=== PATIENT | male | born 1950 | race African-American/Black ===

== ENCOUNTER 2022-10-12 14:50 | Emergency (ER) | payer OTHER ==
[2022-10-12 15:27] VITALS: TEMP 98.6; BMI 34.7
[2022-10-12] MEDS ORDERED: SODIUM CHLORIDE 0.9% 500 ML INFUS.BAG IV ONE ×2 (17:33→17:56)
[2022-10-12] MEDS ORDERED: FOLIC ACID 1 MG TABLET (FP) PO ONE (17:56)
[2022-10-12] MEDS ORDERED: THIAMINE HCL 100 MG TABLET (FP) PO ONE (17:56)
[2022-10-12 18:09] LABS: EOS % 1.8 % (0-4.5); HEMATOCRIT 46.5 % (35.4-49); HEMOGLOBIN 15.2 GM/dL (11.7-16.9); LYMPH % 22.7 % (8-40); MCH 29.3 pg (25.7-33.7); MCHC 32.7 g/dl (32.0-35.9); MEAN CELL VOLUME 89.6 fl (80-96); MEAN PLT VOLUME 10.1 fl (7.5-11.1); MONO % 10.1 % (3.8-10.2); NEUT % 64.4 % (42.8-82.8); PLATELET COUNT 249 10^3/uL (134-434); WHITE BLOOD COUNT 7.3 K/mm3 (4.0-10.0)
[2022-10-12] MEDS ORDERED: THIAMINE HCL 100 MG TABLET (FP) ONE (18:19)
[2022-10-12] MEDS ORDERED: FOLIC ACID 1 MG TABLET (FP) ONE ×2 (18:19)
[2022-10-12 18:29] LABS: BLOOD UREA NITROGEN 15.1 mg/dL (7-18); CALCIUM 9.4 mg/dL (8.5-10.1); MAGNESIUM 2.3 mg/dL (1.8-2.4)
[2022-10-12 18:32] LABS: CREATININE 1.2 mg/dL (0.55-1.3)
[2022-10-12 18:34] LABS: BILIRUBIN,TOTAL 0.8 mg/dL (0.2-1); TOT PROT 7.5 g/dl (6.4-8.2)
[2022-10-12 18:54] VITALS: BP 129/83; PULSE 80; RESP 16
[2022-10-12 19:09] LABS: EPI CELLS 2 /uL (0-25.1); HYALINE CASTS 1 /uL (0-3.1); URINE APPEARANCE CLOUDY; URINE BACTERIA >9,000 /uL (0-1359); URINE BILIRUBIN NEGATIVE (NEGATIVE); URINE COLOR YELLOW; URINE GLUCOSE (UA) NEGATIVE (NEGATIVE); URINE KETONE TRACE (NEGATIVE); URINE LEUK ESTERASE 3+ (NEGATIVE); URINE NITRITE POSITIVE (NEGATIVE); URINE PROTEIN 1+ (NEGATIVE); URINE RBC 33 /uL (0-23.9); URINE WBC 2237 /uL (0-25.8)
[2022-10-12] MEDS ORDERED: CEFTRIAXONE 1 GM in DEXTROSE 5%-WATER - 100 ML IVPB ONE (19:23)
[2022-10-12] MEDS ORDERED: CEFTRIAXONE 1 GM/50 ML BAG ONE (19:58)
== END 2022-10-12 20:29 | disposition home or self-care (01) ==
LOC: JER 14:50
PROC: 3E033GC Introduction of Other Therapeutic Substance into Peripheral Vein, Percutaneous Approach (ICD-10-PCS; principal; 2022-10-12)
DX: N39.0 Urinary tract infection, site not specified (principal); R53.1 Weakness
CPT/HCPCS: 0241U-QW; 36415; 71046-TC-FY; 80053; 81003; 83735; 83880; 84443; 84484; 85025; 87086; 87186; 93005; 93010; 96365; 99285-25

== ENCOUNTER 2022-10-19 10:25 | Emergency (ER) | payer OTHER ==
[2022-10-19 10:47] VITALS: BP 136/100; PULSE 89; RESP 20; TEMP 98.7; BMI 36.6
[2022-10-19] MEDS ORDERED: MEROPENEM 1 GM in DEXTROSE 5%-WATER 100 ML IVPB ONE (11:49)
[2022-10-19 12:24] LABS: EPI CELLS 1 /uL (0-25.1); HYALINE CASTS 0 /uL (0-3.1); URINE APPEARANCE CLOUDY; URINE BACTERIA >9,000 /uL (0-1359); URINE BILIRUBIN NEGATIVE (NEGATIVE); URINE COLOR YELLOW; URINE GLUCOSE (UA) NEGATIVE (NEGATIVE); URINE KETONE NEGATIVE (NEGATIVE); URINE LEUK ESTERASE 3+ (NEGATIVE); URINE NITRITE NEGATIVE (NEGATIVE); URINE PROTEIN NEGATIVE (NEGATIVE); URINE RBC 19 /uL (0-23.9); URINE UROBILINOGEN 0.2 mg/dL (0.2-1.0); URINE WBC 1313 /uL (0-25.8)
== END 2022-10-19 12:00 | disposition left against medical advice (07) ==
LOC: JER 10:25
DX: N30.00 Acute cystitis without hematuria (principal)
CPT/HCPCS: 81003; 87086; 87186; 96374; 99284-25

== ENCOUNTER 2022-10-24 07:32 | Inpatient (IN) | payer OTHER ==
[2022-10-24 07:48] VITALS: BMI 31.6
[2022-10-24] MEDS ORDERED: MEROPENEM 500 MG in DEXTROSE 5%-WATER 100 ML IVPB ONE (08:53)
[2022-10-24] MEDS ORDERED: MEROPENEM 1 GM in DEXTROSE 5%-WATER 100 ML IVPB ONE (08:57)
[2022-10-24] MEDS ORDERED: MEROPENEM 1 GM VIAL (RESTRICTED TO ID) IVPB ONE (09:07)
[2022-10-24 09:40] LABS: BASO % 1.1 % (0-2.0); EOS % 2.4 % (0-4.5); HEMATOCRIT 42.2 % (35.4-49); HEMOGLOBIN 14.2 GM/dL (11.7-16.9); LYMPH % 26.1 % (8-40); MCHC 33.8 g/dl (32.0-35.9); MEAN CELL VOLUME 88.8 fl (80-96); MEAN PLT VOLUME 9.4 fl (7.5-11.1); MONO % 12.1 % (3.8-10.2); NEUT % 58.3 % (42.8-82.8); PLATELET COUNT 225 10^3/uL (134-434); RBC 4.74 M/mm3 (4.00-5.60); RDW 13.5 % (11.9-15.9); WHITE BLOOD COUNT 7.9 K/mm3 (4.0-10.0)
[2022-10-24 09:54] LABS: CALCIUM 9.1 mg/dL (8.5-10.1)
[2022-10-24 09:55] LABS: ALBUMIN 3.7 g/dl (3.4-5.0); BLOOD UREA NITROGEN 20.7 mg/dL (7-18)
[2022-10-24 09:58] LABS: CREATININE 1.3 mg/dL (0.55-1.3)
[2022-10-24 10:00] LABS: BILIRUBIN,TOTAL 0.5 mg/dL (0.2-1); TOT PROT 7.1 g/dl (6.4-8.2)
[2022-10-24 11:48] LABS: EPI CELLS 3 /uL (0-25.1); HYALINE CASTS 1 /uL (0-3.1); PH,URINE 5.5 (5.0-8.0); URINE APPEARANCE CLOUDY; URINE BACTERIA >9,000 /uL (0-1359); URINE BILIRUBIN NEGATIVE (NEGATIVE); URINE COLOR YELLOW; URINE GLUCOSE (UA) NEGATIVE (NEGATIVE); URINE KETONE TRACE (NEGATIVE); URINE LEUK ESTERASE 2+ (NEGATIVE); URINE NITRITE NEGATIVE (NEGATIVE); URINE PROTEIN TRACE (NEGATIVE); URINE RBC 22 /uL (0-23.9); URINE UROBILINOGEN 0.2 mg/dL (0.2-1.0); URINE WBC 1209 /uL (0-25.8)
[2022-10-24 12:22] LABS: URINE CRYSTALS CALCIUM OXALATE /hpf
[2022-10-24] MEDS: PIPERACILLIN/TAZOB 3.375 GM 3.375 GM in DEXTROSE 5%-WATER - 50 ML IVPB SCH (18:09)
[2022-10-24] MEDS ORDERED: ACETAMINOPHEN 325 MG TABLET (FP) PO PRN (18:50)
[2022-10-25] MEDS: DEXTROSE 5%-0.45% SALINE 1,000 ML IV SCH ×2 (00:30→16:38)
[2022-10-25] MEDS: PIPERACILLIN/TAZOB 3.375 GM 3.375 GM in DEXTROSE 5%-WATER - 50 ML IVPB SCH ×3 (01:43→17:40)
[2022-10-25] MEDS: HEPARIN NA (PORCINE) 5,000 UNITS/ML 1ML VIAL SQ SCH ×2 (09:59→22:43)
[2022-10-25] MEDS: amLODIPine BESYLATE 10 MG TABLET (FP) PO SCH (10:00)
[2022-10-25] MEDS: HYDROCHLOROTHIAZIDE 12.5 MG CAPSULE (FP) PO SCH (10:00)
[2022-10-25] MEDS: ASPIRIN 81 MG CHEWABLE TABLETS PO SCH (10:00)
[2022-10-25] MEDS: LISINOPRIL 20 MG TABLET PO SCH (10:00)
[2022-10-25] MEDS: metoPROLOL SUCCINATE 25 MG TAB.SR.24H (FP) PO SCH (10:00)
[2022-10-25] MEDS: ATORVASTATIN CA 10 MG TABLET (FP) PO SCH (22:42)
[2022-10-26] MEDS: PIPERACILLIN/TAZOB 3.375 GM 3.375 GM in DEXTROSE 5%-WATER - 50 ML IVPB SCH ×3 (02:23→17:35)
[2022-10-26] MEDS: DEXTROSE 5%-0.45% SALINE 1,000 ML IV SCH (02:24)
[2022-10-26] MEDS: amLODIPine BESYLATE 10 MG TABLET (FP) PO SCH (09:49)
[2022-10-26] MEDS: HYDROCHLOROTHIAZIDE 12.5 MG CAPSULE (FP) PO SCH (09:49)
[2022-10-26] MEDS: metoPROLOL SUCCINATE 25 MG TAB.SR.24H (FP) PO SCH (09:49)
[2022-10-26] MEDS: LISINOPRIL 20 MG TABLET PO SCH (09:50)
[2022-10-26] MEDS: ASPIRIN 81 MG CHEWABLE TABLETS PO SCH (09:50)
[2022-10-26] MEDS: HEPARIN NA (PORCINE) 5,000 UNITS/ML 1ML VIAL SQ SCH ×2 (09:50→22:59)
[2022-10-26 10:39] LABS: HEMATOCRIT 44.2 % (35.4-49); HEMOGLOBIN 14.8 GM/dL (11.7-16.9); LYMPH % 22.2 % (8-40); MCH 29.8 pg (25.7-33.7); MCHC 33.5 g/dl (32.0-35.9); MEAN CELL VOLUME 88.9 fl (80-96); MEAN PLT VOLUME 9.4 fl (7.5-11.1); MONO % 11.1 % (3.8-10.2); NEUT % 62.7 % (42.8-82.8); PLATELET COUNT 242 10^3/uL (134-434); RBC 4.97 M/mm3 (4.00-5.60); RDW 13.5 % (11.9-15.9); WHITE BLOOD COUNT 7.5 K/mm3 (4.0-10.0)
[2022-10-26 11:11] LABS: ALBUMIN 3.7 g/dl (3.4-5.0); BLOOD UREA NITROGEN 13.3 mg/dL (7-18)
[2022-10-26 11:14] LABS: CREATININE 1.1 mg/dL (0.55-1.3)
[2022-10-26 11:15] LABS: BILIRUBIN,TOTAL 0.9 mg/dL (0.2-1); TOT PROT 7.3 g/dl (6.4-8.2)
[2022-10-26] MEDS: ATORVASTATIN CA 10 MG TABLET (FP) PO SCH (22:59)
[2022-10-27] MEDS: DEXTROSE 5%-0.45% SALINE 1,000 ML IV SCH ×2 (02:23→22:03)
[2022-10-27] MEDS: PIPERACILLIN/TAZOB 3.375 GM 3.375 GM in DEXTROSE 5%-WATER - 50 ML IVPB SCH ×3 (02:23→18:28)
[2022-10-27] MEDS: amLODIPine BESYLATE 10 MG TABLET (FP) PO SCH (10:02)
[2022-10-27] MEDS: HYDROCHLOROTHIAZIDE 12.5 MG CAPSULE (FP) PO SCH (10:02)
[2022-10-27] MEDS: metoPROLOL SUCCINATE 25 MG TAB.SR.24H (FP) PO SCH (10:02)
[2022-10-27] MEDS: LISINOPRIL 20 MG TABLET PO SCH (10:02)
[2022-10-27] MEDS: ASPIRIN 81 MG CHEWABLE TABLETS PO SCH (10:03)
[2022-10-27] MEDS: HEPARIN NA (PORCINE) 5,000 UNITS/ML 1ML VIAL SQ SCH ×2 (10:03→21:10)
[2022-10-27] MEDS: ATORVASTATIN CA 10 MG TABLET (FP) PO SCH (21:10)
[2022-10-28] MEDS: PIPERACILLIN/TAZOB 3.375 GM 3.375 GM in DEXTROSE 5%-WATER - 50 ML IVPB SCH ×2 (01:26→09:47)
[2022-10-28] MEDS: DEXTROSE 5%-0.45% SALINE 1,000 ML IV SCH (01:26)
[2022-10-28 04:48] VITALS: RESP 18
[2022-10-28 08:58] VITALS: BP 152/82; PULSE 77; TEMP 98.4
[2022-10-28] MEDS: amLODIPine BESYLATE 10 MG TABLET (FP) PO SCH (09:45)
[2022-10-28] MEDS: LISINOPRIL 20 MG TABLET PO SCH (09:45)
[2022-10-28] MEDS: ASPIRIN 81 MG CHEWABLE TABLETS PO SCH (09:45)
[2022-10-28] MEDS: metoPROLOL SUCCINATE 25 MG TAB.SR.24H (FP) PO SCH (09:45)
[2022-10-28] MEDS: HYDROCHLOROTHIAZIDE 12.5 MG CAPSULE (FP) PO SCH (09:45)
[2022-10-28] MEDS: HEPARIN NA (PORCINE) 5,000 UNITS/ML 1ML VIAL SQ SCH (09:47)
== END 2022-10-28 14:15 | disposition left against medical advice (07) | DRG 690 ==
LOC: JER 07:32 → JERBED 09:58 → J6S 15:14
PROVIDERS: ADMIT Internal Medicine; ATTEND Internal Medicine
DX: N39.0 Urinary tract infection, site not specified (principal); I10 Essential (primary) hypertension; N40.0 Benign prostatic hyperplasia without lower urinary tract symptoms; E66.9 Obesity, unspecified; Z68.31 Body mass index [BMI] 31.0-31.9, adult
CPT/HCPCS: 0241U-QW; 36415; 71046-TC-FY; 76775-TC; 80053; 81003; 85025; 87086; 87186; 93005; 93010; 99285-25; J1644

== ENCOUNTER 2025-04-14 11:45 | Inpatient (IN) | payer OTHER ==
[2025-04-14 12:50] LABS: ABSOLUTE IMMATURE GRANULOCYTES 0.01 x10^3/uL (0.0-0.031); BASOPHILS # 0.06 x10^3/uL (0.01-0.08); EOSINOPHILS # 0.19 x10^3/uL (0.04-0.54); HEMATOCRIT 39.5 % (40.1-51.0); HEMOGLOBIN 13.5 g/dL (13.7-17.5); MCHC 34.2 g/dl (32.3-36.5); MEAN PLT VOLUME 11.6 fl (9.4-12.4); MONOCYTE # 0.85 x10^3/uL (0.30-0.82); MONOCYTE % 13.6 % (5.3-12.2); PLATELET COUNT 199 x10^3/uL (163-337); RDW 12.9 % (12.2-16.6)
[2025-04-14] MEDS ORDERED: MEROPENEM 1 GM VIAL (RESTRICTED TO ID) IVPB ONE ×2 (12:57→17:45)
[2025-04-14 13:12] LABS: CALCIUM 9.2 mg/dL (8.5-10.1)
[2025-04-14 13:13] LABS: ALBUMIN 3.7 g/dl (3.4-5.0)
[2025-04-14 13:16] LABS: CREATININE 1.1 mg/dL (0.55-1.3)
[2025-04-14 13:17] LABS: BILIRUBIN,TOTAL 0.6 mg/dL (0.2-1); TOT PROT 6.9 g/dl (6.4-8.2)
[2025-04-14] MEDS: MEROPENEM 1 GM in DEXTROSE 5%-WATER 100 ML IVPB ONE (13:23)
[2025-04-14 13:48] LABS: EPI CELLS 1 /uL (0-25.1); HYALINE CASTS 1 /uL (0-3.1); PH,URINE 6.5 (5.0-8.0); URINE APPEARANCE CLEAR; URINE BACTERIA >9,000 /uL (0-1359); URINE BILIRUBIN NEGATIVE (NEGATIVE); URINE COLOR YELLOW; URINE GLUCOSE (UA) NEGATIVE (NEGATIVE); URINE KETONE NEGATIVE (NEGATIVE); URINE LEUK ESTERASE 3+ (NEGATIVE); URINE NITRITE POSITIVE (NEGATIVE); URINE PROTEIN NEGATIVE (NEGATIVE); URINE RBC 20 /uL (0-23.9); URINE WBC 640 /uL (0-25.8)
[2025-04-14] MEDS: DEXTROSE 5%-0.45% SALINE 1,000 ML IV SCH (15:26)
[2025-04-14] MEDS: MEROPENEM 1 GM in DEXTROSE 5%-WATER 100 ML IVPB SCH ×2 (18:00→23:55)
[2025-04-14 23:45] VITALS: BMI 36.4
[2025-04-14] MEDS: ATORVASTATIN CA 10 MG TABLET (FP) PO SCH (23:55)
[2025-04-14] MEDS: HEPARIN NA (PORCINE) 5,000 UNITS/ML 1ML VIAL SQ SCH (23:55)
[2025-04-15] MEDS: PIPERACILLIN/TAZOB 4.5 GM 4.5 GM/100 ML BAG IVPB SCH (01:22)
[2025-04-15 07:17] LABS: ABSOLUTE IMMATURE GRANULOCYTES 0.02 x10^3/uL (0.0-0.031); BASOPHILS # 0.07 x10^3/uL (0.01-0.08); EOSINOPHIL % 3.4 % (0.8-7.0); EOSINOPHILS # 0.23 x10^3/uL (0.04-0.54); HEMATOCRIT 38.7 % (40.1-51.0); HEMOGLOBIN 13.4 g/dL (13.7-17.5); MCHC 34.6 g/dl (32.3-36.5); MEAN CELL VOLUME 87.2 fl (79.0-92.2); MEAN PLT VOLUME 11.4 fl (9.4-12.4); MONOCYTE # 0.78 x10^3/uL (0.30-0.82); MONOCYTE % 11.7 % (5.3-12.2); PLATELET COUNT 196 x10^3/uL (163-337); RDW 12.8 % (12.2-16.6)
[2025-04-15 07:31] LABS: POTASSIUM 3.5 mmol/L (3.5-5.1)
[2025-04-15 07:34] LABS: ALBUMIN 3.4 g/dl (3.4-5.0); BLOOD UREA NITROGEN 11.8 mg/dL (7-18)
[2025-04-15 07:39] LABS: BILIRUBIN,TOTAL 0.8 mg/dL (0.2-1); TOT PROT 6.5 g/dl (6.4-8.2)
[2025-04-15] MEDS: LISINOPRIL 20 MG TABLET PO SCH (10:20)
[2025-04-15] MEDS: amLODIPine BESYLATE 10 MG TABLET (FP) PO SCH (10:20)
[2025-04-15] MEDS: metoPROLOL SUCCINATE 25 MG TAB.SR.24H (FP) PO SCH (10:20)
[2025-04-15] MEDS: TAMSULOSIN HCL 0.4 MG CAP PO SCH (10:20)
[2025-04-15] MEDS: ASPIRIN 81 MG CHEWABLE TABLETS PO SCH (10:20)
[2025-04-16 07:45] LABS: ABSOLUTE IMMATURE GRANULOCYTES 0.02 x10^3/uL (0.0-0.031); BASOPHILS # 0.09 x10^3/uL (0.01-0.08); EOSINOPHIL % 3.7 % (0.8-7.0); EOSINOPHILS # 0.23 x10^3/uL (0.04-0.54); HEMATOCRIT 42.4 % (40.1-51.0); HEMOGLOBIN 14.4 g/dL (13.7-17.5); MEAN CELL VOLUME 87.6 fl (79.0-92.2); MONOCYTE # 0.73 x10^3/uL (0.30-0.82); MONOCYTE % 11.8 % (5.3-12.2); PLATELET COUNT 232 x10^3/uL (163-337); RDW 12.8 % (12.2-16.6)
[2025-04-16 08:07] LABS: ALBUMIN 3.7 g/dl (3.4-5.0); BLOOD UREA NITROGEN 12.6 mg/dL (7-18)
[2025-04-16 08:09] LABS: BILIRUBIN,TOTAL 0.7 mg/dL (0.2-1); CALCIUM 9.3 mg/dL (8.5-10.1); TOT PROT 7.1 g/dl (6.4-8.2)
[2025-04-16] MEDS: MEROPENEM 1 GM in DEXTROSE 5%-WATER 100 ML IVPB SCH (18:07)
[2025-04-17 08:24] LABS: ABSOLUTE IMMATURE GRANULOCYTES 0.01 x10^3/uL (0.0-0.031); BASOPHILS # 0.08 x10^3/uL (0.01-0.08); EOSINOPHIL % 3.9 % (0.8-7.0); EOSINOPHILS # 0.25 x10^3/uL (0.04-0.54); HEMATOCRIT 44.5 % (40.1-51.0); HEMOGLOBIN 14.8 g/dL (13.7-17.5); MCHC 33.3 g/dl (32.3-36.5); MEAN CELL VOLUME 87.4 fl (79.0-92.2); MEAN PLT VOLUME 11.8 fl (9.4-12.4); MONOCYTE # 0.65 x10^3/uL (0.30-0.82); PLATELET COUNT 247 x10^3/uL (163-337)
[2025-04-17 09:15] LABS: POTASSIUM 4.1 mmol/L (3.5-5.1)
[2025-04-17 09:17] LABS: CALCIUM 9.5 mg/dL (8.5-10.1)
[2025-04-17 09:19] LABS: ALBUMIN 3.7 g/dl (3.4-5.0); BLOOD UREA NITROGEN 8.3 mg/dL (7-18)
[2025-04-17 09:24] LABS: BILIRUBIN,TOTAL 0.8 mg/dL (0.2-1); TOT PROT 7.3 g/dl (6.4-8.2)
[2025-04-17] MEDS: BISACODYL 5 MG TABLET.DR (FP) PO ONE (13:58)
[2025-04-17] MEDS: POLYETHYLENE GLYCOL 3350 255 GM BTL PO ONE (16:36)
[2025-04-20 08:17] LABS: HEMATOCRIT 42.3 % (40.1-51.0); HEMOGLOBIN 14.2 g/dL (13.7-17.5); MCHC 33.6 g/dl (32.3-36.5); MEAN CELL VOLUME 88.1 fl (79.0-92.2); MEAN PLT VOLUME 11.9 fl (9.4-12.4); PLATELET COUNT 217 x10^3/uL (163-337); RDW 12.7 % (12.2-16.6)
[2025-04-20 08:37] LABS: POTASSIUM 3.8 mmol/L (3.5-5.1)
[2025-04-20 08:39] LABS: CALCIUM 9.3 mg/dL (8.5-10.1)
[2025-04-20 08:40] LABS: ALBUMIN 3.5 g/dl (3.4-5.0); BLOOD UREA NITROGEN 11.5 mg/dL (7-18)
[2025-04-20 08:43] LABS: CREATININE 0.9 mg/dL (0.55-1.3)
[2025-04-20 08:44] LABS: BILIRUBIN,TOTAL 1.1 mg/dL (0.2-1)
[2025-04-20 08:45] LABS: TOT PROT 6.6 g/dl (6.4-8.2)
[2025-04-21 08:09] LABS: HEMATOCRIT 41.9 % (40.1-51.0); HEMOGLOBIN 14.1 g/dL (13.7-17.5); MCHC 33.7 g/dl (32.3-36.5); MEAN CELL VOLUME 88.4 fl (79.0-92.2); PLATELET COUNT 235 x10^3/uL (163-337); RDW 12.7 % (12.2-16.6)
[2025-04-21 08:24] LABS: POTASSIUM 4.2 mmol/L (3.5-5.1)
[2025-04-21 08:30] LABS: ALBUMIN 3.5 g/dl (3.4-5.0); BLOOD UREA NITROGEN 15.9 mg/dL (7-18); CALCIUM 9.6 mg/dL (8.5-10.1)
[2025-04-21 08:35] LABS: BILIRUBIN,TOTAL 0.8 mg/dL (0.2-1); TOT PROT 6.8 g/dl (6.4-8.2)
[2025-04-21] MEDS: PANTOPRAZOLE 40 MG TABLET PO SCH (16:04)
[2025-04-21] MEDS: BISMUTH SUBSALICYLATE 524 MG/30 ML PO PRN (18:09)
[2025-04-22 07:42] LABS: ABSOLUTE IMMATURE GRANULOCYTES 0.03 x10^3/uL (0.0-0.031); BASOPHILS # 0.08 x10^3/uL (0.01-0.08); EOSINOPHIL % 3.1 % (0.8-7.0); EOSINOPHILS # 0.22 x10^3/uL (0.04-0.54); HEMATOCRIT 40.6 % (40.1-51.0); HEMOGLOBIN 13.6 g/dL (13.7-17.5); MCHC 33.5 g/dl (32.3-36.5); MEAN CELL VOLUME 88.1 fl (79.0-92.2); MONOCYTE # 0.83 x10^3/uL (0.30-0.82); MONOCYTE % 11.5 % (5.3-12.2); PLATELET COUNT 236 x10^3/uL (163-337); RDW 12.7 % (12.2-16.6)
[2025-04-22 07:53] LABS: POTASSIUM 4.3 mmol/L (3.5-5.1)
[2025-04-22 07:54] LABS: CALCIUM 9.5 mg/dL (8.5-10.1)
[2025-04-22 07:55] LABS: ALBUMIN 3.6 g/dl (3.4-5.0); BLOOD UREA NITROGEN 15.9 mg/dL (7-18)
[2025-04-22 08:00] LABS: BILIRUBIN,TOTAL 0.7 mg/dL (0.2-1); TOT PROT 6.8 g/dl (6.4-8.2)
[2025-04-22] MEDS: POLYETHYLENE GLYCOL 3350 255 GM BTL PO ONE (17:46)
[2025-04-22] MEDS: BISACODYL 5 MG TABLET.DR (FP) PO ONE (18:13)
[2025-04-22] MEDS: NEOMYCIN SO4 500 MG TABLET PO SCH (19:06)
[2025-04-22] MEDS: metroNIDAZOLE 250 MG TABLET PO SCH (19:06)
[2025-04-23] MEDS ORDERED: cefOXitin SODIUM 2 GM VIAL (RESTRICTED TO ID) IVPB ONE (07:04)
[2025-04-23] MEDS ORDERED: INDOCYANINE GREEN 25 MG/10 ML VIAL IVPUSH ONE (07:04)
[2025-04-23] MEDS ORDERED: HEPARIN NA (PORCINE) 5,000 UNITS/ML 1ML VIAL ONE (07:04)
[2025-04-23] MEDS ORDERED: BUPIVACAINE HCL/PF 0.25% (2.5MG/ML) 10 ML VIAL ONE (07:04)
[2025-04-23] MEDS ORDERED: SUCCINYLCHOLINE CHLORIDE 200 MG/10 ML SYRINGE ONE (07:33)
[2025-04-23] MEDS ORDERED: ROCURONIUM BROMIDE 50 MG/5 ML SYRINGE ONE ×2 (07:33→11:19)
[2025-04-23] MEDS ORDERED: METOCLOPRAMIDE HCL INJECTION 10 MG/2 ML VIAL ONE (07:34)
[2025-04-23] MEDS ORDERED: GLYCOPYRROLATE 0.2 MG/1 ML VIAL ONE (07:34)
[2025-04-23] MEDS ORDERED: KETOROLAC TROMETHAMINE 30 MG/1 ML VIAL ONE (07:34)
[2025-04-23] MEDS ORDERED: ONDANSETRON 4 MG/2 ML VIAL ONE (07:34)
[2025-04-23] MEDS ORDERED: DEXAMETHASONE SOD PHOSPHATE 4 MG/1 ML VIAL ONE (07:34)
[2025-04-23] MEDS ORDERED: LIDOCAINE HCL/PF 2% SDV 5ML VIAL ONE (07:34)
[2025-04-23] MEDS ORDERED: SEVOFLURANE 250 ML BTL ONE (07:35)
[2025-04-23] MEDS ORDERED: MIDAZOLAM HCL 2 MG/2 ML SINGLE DOSE VIAL ONE (07:39)
[2025-04-23] MEDS ORDERED: PROPOFOL 20 ML ONE ×2 (07:40→14:49)
[2025-04-23] MEDS ORDERED: PROPOFOL 60 ML ONE (08:13)
[2025-04-23] MEDS ORDERED: HYDROmorphone HCl 2 MG/ML VIAL ONE (08:20)
[2025-04-23 08:35] LABS: INR 1.23 (0.83-1.09); PROTHROMBIN TIME (PATIENT) 13.4 SEC (9.7-13.0)
[2025-04-23 08:37] LABS: ACTIVATED PTT 42.3 SECONDS (25.2-36.5)
[2025-04-23] MEDS ORDERED: ESMOLOL HCL 100,000 MCG/10 ML VIAL ONE (09:35)
[2025-04-23] MEDS: cefOXitin SODIUM 1 GM VIAL (RESTRICTED TO ID) IVPB ONE ×2 (09:46)
[2025-04-23] MEDS ORDERED: ACETAMINOPHEN INJECTION 100 ML ONE (09:59)
[2025-04-23] MEDS: BUPIVACAINE HCL/PF 0.25% (2.5MG/ML) 10 ML VIAL IJ ONE ×2 (09:59)
[2025-04-23] MEDS ORDERED: PROPOFOL 40 ML ONE (11:27)
[2025-04-23] MEDS ORDERED: SUGAMMADEX SODIUM 200 MG/2 ML VIAL ONE (14:27)
[2025-04-23] MEDS ORDERED: oxyCODONE HCL 5 MG TABLET PO PRN (15:56)
[2025-04-23 17:13] LABS: POTASSIUM 4.6 mmol/L (3.5-5.1)
[2025-04-23 17:15] LABS: BLOOD UREA NITROGEN 14.6 mg/dL (7-18); CALCIUM 9.1 mg/dL (8.5-10.1)
[2025-04-23 17:16] LABS: MAGNESIUM 2.1 mg/dL (1.8-2.4)
[2025-04-23] MEDS: ACETAMINOPHEN 1000 MG/100 ML BAG IVPB SCH (17:36)
[2025-04-23] MEDS: LACTATED RINGERS SOLUTION 1,000 ML IV SCH ×2 (17:39→23:02)
[2025-04-23] MEDS: MEROPENEM 1 GM in DEXTROSE 5%-WATER 100 ML IVPB SCH (18:09)
[2025-04-23] MEDS: ATORVASTATIN CA 10 MG TABLET (FP) PO SCH (22:05)
[2025-04-23] MEDS: HEPARIN NA (PORCINE) 5,000 UNITS/ML 1ML VIAL SQ SCH (22:05)
[2025-04-24 08:00] LABS: ABSOLUTE IMMATURE GRANULOCYTES 0.08 x10^3/uL (0.0-0.031); BASOPHILS # 0.02 x10^3/uL (0.01-0.08); HEMATOCRIT 35.3 % (40.1-51.0); HEMOGLOBIN 11.8 g/dL (13.7-17.5); MCHC 33.4 g/dl (32.3-36.5); MEAN CELL VOLUME 90.1 fl (79.0-92.2); MEAN PLT VOLUME 12.5 fl (9.4-12.4); MONOCYTE # 2.01 x10^3/uL (0.30-0.82); MONOCYTE % 11.3 % (5.3-12.2); PLATELET COUNT 217 x10^3/uL (163-337); RDW 12.7 % (12.2-16.6)
[2025-04-24 08:28] LABS: POTASSIUM 4.5 mmol/L (3.5-5.1)
[2025-04-24 08:46] LABS: BLOOD UREA NITROGEN 14.2 mg/dL (7-18)
[2025-04-24 08:48] LABS: CREATININE 0.8 mg/dL (0.55-1.3); MAGNESIUM 2.1 mg/dL (1.8-2.4)
[2025-04-24 08:49] LABS: PHOSPHOROUS 3.2 mg/dL (2.5-4.9)
[2025-04-24] MEDS: TAMSULOSIN HCL 0.4 MG CAP PO SCH (08:49)
[2025-04-24] MEDS: oxyCODONE HCL 5 MG TABLET PO PRN (08:49)
[2025-04-24 08:51] LABS: CALCIUM 9.4 mg/dL (8.5-10.1)
[2025-04-24] MEDS: metoPROLOL SUCCINATE 25 MG TAB.SR.24H (FP) PO SCH (10:14)
[2025-04-24] MEDS: LISINOPRIL 20 MG TABLET PO SCH (10:14)
[2025-04-24] MEDS: PANTOPRAZOLE 40 MG TABLET PO SCH (10:14)
[2025-04-24] MEDS: amLODIPine BESYLATE 10 MG TABLET (FP) PO SCH (10:14)
[2025-04-24] MEDS: ACETAMINOPHEN 500 MG TABLET (FP) PO PRN (10:20)
[2025-04-24] MEDS: ONDANSETRON 4 MG/2 ML VIAL IVPUSH ONE (20:05)
[2025-04-25 08:23] LABS: ABSOLUTE IMMATURE GRANULOCYTES 0.07 x10^3/uL (0.0-0.031); BASOPHILS # 0.04 x10^3/uL (0.01-0.08); EOSINOPHIL % 0.1 % (0.8-7.0); EOSINOPHILS # 0.01 x10^3/uL (0.04-0.54); HEMATOCRIT 35.8 % (40.1-51.0); HEMOGLOBIN 11.8 g/dL (13.7-17.5); MEAN CELL VOLUME 90.9 fl (79.0-92.2); MEAN PLT VOLUME 12.3 fl (9.4-12.4); MONOCYTE # 2.36 x10^3/uL (0.30-0.82); MONOCYTE % 13.7 % (5.3-12.2); PLATELET COUNT 227 x10^3/uL (163-337)
[2025-04-25 08:51] LABS: POTASSIUM 4.3 mmol/L (3.5-5.1)
[2025-04-25 08:57] LABS: CALCIUM 9.2 mg/dL (8.5-10.1)
[2025-04-25 08:58] LABS: ALBUMIN 3.4 g/dl (3.4-5.0); BLOOD UREA NITROGEN 13.6 mg/dL (7-18); MAGNESIUM 2.1 mg/dL (1.8-2.4)
[2025-04-25 09:01] LABS: BILIRUBIN,TOTAL 1.1 mg/dL (0.2-1); CREATININE 0.9 mg/dL (0.55-1.3); PHOSPHOROUS 2.9 mg/dL (2.5-4.9); TOT PROT 6.6 g/dl (6.4-8.2)
[2025-04-25] MEDS: ACETAMINOPHEN 500 MG TABLET (FP) PO SCH (11:18)
[2025-04-25] MEDS: ONDANSETRON 4 MG/2 ML VIAL IVPUSH PRN (11:18)
[2025-04-25] MEDS: SODIUM CHLORIDE 1,000 ML IV STA (16:51)
[2025-04-25] MEDS: ACETAMINOPHEN 1000 MG/100 ML BAG IVPB SCH (17:29)
[2025-04-25] MEDS: LACTATED RINGERS SOLUTION 1,000 ML IV SCH (18:38)
[2025-04-25] MEDS: BISMUTH SUBSALICYLATE 524 MG/30 ML PO PRN (21:20)
[2025-04-26] MEDS ORDERED: PANTOPRAZOLE SODIUM 40 MG in SODIUM CHLORIDE 100 ML IVPB ONE (07:30)
[2025-04-26 07:56] LABS: ABSOLUTE IMMATURE GRANULOCYTES 0.14 x10^3/uL (0.0-0.031); BASOPHILS # 0.05 x10^3/uL (0.01-0.08); EOSINOPHIL % 0.1 % (0.8-7.0); EOSINOPHILS # 0.01 x10^3/uL (0.04-0.54); HEMATOCRIT 34.9 % (40.1-51.0); HEMOGLOBIN 11.7 g/dL (13.7-17.5); MCHC 33.5 g/dl (32.3-36.5); MEAN CELL VOLUME 89.7 fl (79.0-92.2); MEAN PLT VOLUME 12.4 fl (9.4-12.4); MONOCYTE # 2.03 x10^3/uL (0.30-0.82); MONOCYTE % 10.8 % (5.3-12.2); PLATELET COUNT 273 x10^3/uL (163-337)
[2025-04-26] MEDS: PANTOPRAZOLE SODIUM 40 MG in SODIUM CHLORIDE 100 ML IVPB ONE (08:14)
[2025-04-26 08:32] LABS: POTASSIUM 4.2 mmol/L (3.5-5.1)
[2025-04-26 08:35] LABS: BLOOD UREA NITROGEN 16.1 mg/dL (7-18); CALCIUM 9.5 mg/dL (8.5-10.1); MAGNESIUM 2.2 mg/dL (1.8-2.4)
[2025-04-26 08:38] LABS: CREATININE 0.9 mg/dL (0.55-1.3); PHOSPHOROUS 3.1 mg/dL (2.5-4.9)
[2025-04-26 08:39] LABS: BILIRUBIN,TOTAL 0.9 mg/dL (0.2-1)
[2025-04-26 08:40] LABS: TOT PROT 6.3 g/dl (6.4-8.2)
[2025-04-26] MEDS: HYDROCORTISONE 1% TOPICAL OINT 30 GM TUBE TP SCH (13:27)
[2025-04-27 08:06] LABS: ABSOLUTE IMMATURE GRANULOCYTES 0.06 x10^3/uL (0.0-0.031); BASOPHILS # 0.07 x10^3/uL (0.01-0.08); EOSINOPHIL % 1.2 % (0.8-7.0); EOSINOPHILS # 0.14 x10^3/uL (0.04-0.54); HEMOGLOBIN 10.2 g/dL (13.7-17.5); MCHC 32.9 g/dl (32.3-36.5); MEAN CELL VOLUME 89.9 fl (79.0-92.2); MONOCYTE # 1.23 x10^3/uL (0.30-0.82); MONOCYTE % 10.6 % (5.3-12.2); PLATELET COUNT 236 x10^3/uL (163-337); RDW 13.1 % (12.2-16.6)
[2025-04-27 08:08] LABS: CALCIUM 9.1 mg/dL (8.5-10.1)
[2025-04-27 08:09] LABS: ALBUMIN 2.6 g/dl (3.4-5.0); BLOOD UREA NITROGEN 16.9 mg/dL (7-18); MAGNESIUM 2.1 mg/dL (1.8-2.4)
[2025-04-27 08:12] LABS: CREATININE 0.8 mg/dL (0.55-1.3); PHOSPHOROUS 2.5 mg/dL (2.5-4.9)
[2025-04-27 08:13] LABS: BILIRUBIN,TOTAL 0.7 mg/dL (0.2-1); TOT PROT 5.6 g/dl (6.4-8.2)
[2025-04-27] MEDS: oxyCODONE HCL 5 MG TABLET PO PRN (18:09)
[2025-04-28 08:10] LABS: ABSOLUTE IMMATURE GRANULOCYTES 0.04 x10^3/uL (0.0-0.031); BASOPHILS # 0.04 x10^3/uL (0.01-0.08); EOSINOPHIL % 1.1 % (0.8-7.0); EOSINOPHILS # 0.11 x10^3/uL (0.04-0.54); HEMATOCRIT 30.9 % (40.1-51.0); HEMOGLOBIN 10.1 g/dL (13.7-17.5); MCHC 32.7 g/dl (32.3-36.5); MEAN CELL VOLUME 90.1 fl (79.0-92.2); MEAN PLT VOLUME 12.2 fl (9.4-12.4); MONOCYTE # 1.17 x10^3/uL (0.30-0.82); PLATELET COUNT 260 x10^3/uL (163-337); RDW 12.9 % (12.2-16.6)
[2025-04-28 08:23] LABS: POTASSIUM 3.9 mmol/L (3.5-5.1)
[2025-04-28 08:24] LABS: ALBUMIN 2.8 g/dl (3.4-5.0); CALCIUM 9.4 mg/dL (8.5-10.1)
[2025-04-28 08:26] LABS: BLOOD UREA NITROGEN 15.3 mg/dL (7-18); MAGNESIUM 2.1 mg/dL (1.8-2.4)
[2025-04-28 08:28] LABS: CREATININE 0.7 mg/dL (0.55-1.3); PHOSPHOROUS 2.7 mg/dL (2.5-4.9)
[2025-04-28 08:30] LABS: BILIRUBIN,TOTAL 0.7 mg/dL (0.2-1)
[2025-04-28] MEDS: ACETAMINOPHEN 1000 MG/100 ML BAG IVPB ONE (21:56)
[2025-04-28] MEDS: oxyCODONE HCL 5 MG TABLET PO PRN (23:59)
[2025-04-29 05:55] VITALS: RESP 18
[2025-04-29 08:17] LABS: ABSOLUTE IMMATURE GRANULOCYTES 0.05 x10^3/uL (0.0-0.031); BASOPHILS # 0.04 x10^3/uL (0.01-0.08); EOSINOPHIL % 2.3 % (0.8-7.0); EOSINOPHILS # 0.19 x10^3/uL (0.04-0.54); HEMATOCRIT 32.7 % (40.1-51.0); HEMOGLOBIN 10.6 g/dL (13.7-17.5); MCHC 32.4 g/dl (32.3-36.5); MEAN CELL VOLUME 91.3 fl (79.0-92.2); MEAN PLT VOLUME 12.2 fl (9.4-12.4); MONOCYTE # 0.96 x10^3/uL (0.30-0.82); MONOCYTE % 11.4 % (5.3-12.2); PLATELET COUNT 250 x10^3/uL (163-337); RDW 12.8 % (12.2-16.6)
[2025-04-29 08:42] LABS: MAGNESIUM 2.2 mg/dL (1.8-2.4)
[2025-04-29 08:47] LABS: PHOSPHOROUS 3.3 mg/dL (2.5-4.9)
[2025-04-29 14:59] VITALS: BP 119/81; PULSE 80; TEMP 98.1
== END 2025-04-29 17:10 | disposition home or self-care (01) | DRG 982 ==
LOC: JER 11:45 → JERBED 14:05 → OBSVTOIN 14:57 → J7W 23:15 → J2C 04-23 14:59 → J8W 04-23 20:00
PROVIDERS: ADMIT Internal Medicine; ATTEND Internal Medicine
PROC: 0DB58ZX Excision of Esophagus, Via Natural or Artificial Opening Endoscopic, Diagnostic (ICD-10-PCS; 2025-04-18)
PROC: 0DB68ZX Excision of Stomach, Via Natural or Artificial Opening Endoscopic, Diagnostic (ICD-10-PCS; 2025-04-18)
PROC: 0DDK8ZX Extraction of Ascending Colon, Via Natural or Artificial Opening Endoscopic, Diagnostic (ICD-10-PCS; principal; 2025-04-18 13:00)
PROC: 0DTF4ZZ Resection of Right Large Intestine, Percutaneous Endoscopic Approach (ICD-10-PCS; 2025-04-23)
PROC: 8E0W4CZ Robotic Assisted Procedure of Trunk Region, Percutaneous Endoscopic Approach (ICD-10-PCS; 2025-04-23)
DX: N39.0 Urinary tract infection, site not specified (principal); C18.9 Malignant neoplasm of colon, unspecified; K91.89 Other postprocedural complications and disorders of digestive system; K56.7 Ileus, unspecified; B96.89 Other specified bacterial agents as the cause of diseases classified elsewhere; N40.0 Benign prostatic hyperplasia without lower urinary tract symptoms; K21.9 Gastro-esophageal reflux disease without esophagitis; K44.9 Diaphragmatic hernia without obstruction or gangrene; K20.80 Other esophagitis without bleeding; E78.5 Hyperlipidemia, unspecified; N20.0 Calculus of kidney; K29.60 Other gastritis without bleeding; D64.9 Anemia, unspecified; I10 Essential (primary) hypertension; R73.03 Prediabetes; K59.00 Constipation, unspecified; K63.89 Other specified diseases of intestine; Z87.11 Personal history of peptic ulcer disease
CPT/HCPCS: 36415; 71045-TC-FY; 71260-TC; 74018-TC-FY; 74177-TC; 80048; 80053; 80061; 81003; 82378; 83036; 83735; 83880; 84100; 84443; 85025; 85027; 85610; 85730; 86140; 86850; 86900; 86901; 87086; 87481; 88305-TC; 88309-TC; 88312-TC; 88341-TC; 88342-TC; 93005; 93010; 93306-TC; 94760; 97116-GP; 97161-GP; 99285-25; G0378; Q9967